=== PATIENT | female | born 1965 | race Caucasian/White ===

== ENCOUNTER 2020-07-04 15:29 | Inpatient (IN) ==
--- NOTE | 2020-07-04 15:41 | DR.SOBA ---
HPI Time Seen Time Seen by Provider: 07/04/20 15:39 HPI Comment HPI Comment: PATIENT WITH A HISTORY OF HYPERTENSION, ASTHMA AND TYPE 2 DIABETES COMPLAINS OF ACUTE ONSET OF SEVERE SHARP RIGHT SIDED PAIN BELOW AXILLA, ASSOCIATED WITH DYSPNEA, PAIN RADIATES TO BACK. HAS MARKED PAIN UPON INSPIRATION. DENIES COUGH, DIAPHORESIS AND PALPITATIONS. Complaints Chief Complaint Doctors Comments: SHARP RIGHT SIDED CHEST PAINS AND DYSPNEA COVID-19 Coronavirus risk:travel/contact w/high risk person: No Has patient experienced Coronavirus symptoms: No Reviewed Nurses Notes Reviewed: Yes Source History Provided: Patient Mode of Arrival Mode of Arrival: Ambulatory Context History of:: Asthma Modifying Factors Worsens:: Exertion and Other (INSPIRATION) If Chest Pain Quality: Sharp PMH PMH Past Surgical History: Yes ROS Review of Systems Constitutional: See HPI Eyes: No Symptoms Reported ENTM: No Symptoms Reported Respiratoy: See HPI and Short of Breath Cardiovascular: Chest Pain (SHARP RIGHT SIDED CHEST PAIN) Gastrointestinal/Abdominal: No Symptoms Reported Genitourinary: No Symptoms Reported Neurological: No Symptoms Reported Musculoskeletal: No Symptoms Reported Integumentary: No Symptoms Reported Hematologic/Lymphatic: No Symptoms Reported Endocrine: No Symptoms Reported Psychiatric: No Symptoms Reported All Other Systems: Reviewed and Negative PE Vital Signs Vitals: Temperature 98.4 F Pulse Rate 65 Respiratory Rate 18 Blood Pressure 98/53 O2 Sat by Pulse Oximetry 93 General Limitations: No Limitations General Appearance: Alert and In Distress (MODERATE) Head Head Exam: Normal Inspection and Atraumatic Eyes Eye exam: Normal Appearance and PERRL ENT ENT Exam: Normal Exam and Normal Oropharynx Neck Neck Exam: Normal Inspection and Full ROM Chest Chest Inspection: Tenderness (MARKED RIGHT SIDED CHEST WALL TENDERNESS, 4TH TO 8TH EXTENDS TO AXILLA) Respiratory Respiratory Exam: Normal Lung Sounds Bilat Respiratory Exam: Bilateral: Clear to Auscultation Cardiovascular Cardiovascular Exam: Regular Rate and Normal Rhythm Abdominal Exam Abdominal Exam: Normal Inspection Extremities Extremities Exam: Normal Inspection Back Back Exam: Normal Inspection Neurologic Neurological Exam: Alert and Oriented X3 Psychiatric Psychiatric Exam: Normal Affect and Normal Mood Skin Skin Exam: Warm, Dry, Intact and Normal Color MDM Differential Diagnosis Differential Diagnosis: Pneumonia and Pulmonary embolism Differential Diagnosis Comment:: PLEURISY COURSE Treatment Treatment: IV NORMAL SALINE 50ML/HR, TORADOL 30MG, ZOFRAN 4MG, MORPHINE 4MG IV, PLACED ON HEPARIN BOLUS 8700 UNITS IV AND HEPARIN INFUSION 1700 UNITS/HR Reevaluation 1st: Improved Consultation Call Returned: 18:20 Consultation Comments: DISCUSSED FINDINGS WITH DR BROWNE AT 1820 FOR OBSERVATION Education/Counseling Educated On: Treatment, Diagnosis and Needs for Follow Up ROR Labs Reviewed Result Diagrams: 07/04/20 14:44 07/04/20 14:44 Laboratory: WBC 8.3 X10^3/uL (3.6-10.0) 07/04/20 14:44 RBC 4.47 X10^6/uL (3.5-5.4) 07/04/20 14:44 Hgb 12.0 g/dL (12.0-16.0) 07/04/20 14:44 Hct 37.0 % (36.0-47.0) 07/04/20 14:44 MCV 82.9 fL (80.0-100.0) 07/04/20 14:44 MCH 26.9 pg (27.0-34.0) L 07/04/20 14:44 MCHC 32.4 g/dL (33.0-35.0) L 07/04/20 14:44 RDW 15.5 % (11.6-16.5) 07/04/20 14:44 Plt Count 226 X10^3/uL (150.0-450.0) 07/04/20 14:44 MPV 9.0 fL (7.4-11.0) 07/04/20 14:44 Neut % (Auto) 75.7 % (42.0-75.0) H 07/04/20 14:44 Lymph % (Auto) 14.0 % (21.0-51.0) L 07/04/20 14:44 Dewey % (Auto) 7.7 % (0.0-13.0) 07/04/20 14:44 Eos % (Auto) 2.1 % (0.9-2.9) 07/04/20 14:44 Baso % (Auto) 0.5 % (0.2-1.0) 07/04/20 14:44 Neut # (Auto) 6.3 x10^3/uL (2.2-4.8) H 07/04/20 14:44 Lymph # (Auto) 1.2 X10^3/uL (1.3-2.9) L 07/04/20 14:44 Dewey # (Auto) 0.6 x10^3/uL (0.3-0.8) 07/04/20 14:44 Eos # (Auto) 0.2 x10^3/uL (0.0-0.2) 07/04/20 14:44 Baso # (Auto) 0.0 X10^3/uL (0.0-0.1) 07/04/20 14:44 Absolute Nucleated RBC 0.0 /100WBC 07/04/20 14:44 PT 13.9 SECONDS (11.8-14.3) 07/04/20 14:44 INR Target Range - 07/04/20 14:44 INR 1.12 (0.8-1.3) 07/04/20 14:44 D-Dimer 0.71 ug/ml (0.0-0.57) H* 07/04/20 14:44 Sample Site Rra 07/04/20 15:50 ABG pH 7.380 (7.35-7.45) 07/04/20 15:50 ABG pCO2 56.0 mmHg (35.0-45.0) H* 07/04/20 15:50 ABG pO2 84.0 mmHg (80.0-100.0) 07/04/20 15:50 ABG HCO3 33.1 mmol/L (22-26) H* 07/04/20 15:50 ABG O2 Saturation 96.0 % (90-100) 07/04/20 15:50 ABG Base Excess 6.4 mmol/L (-2.0-2.0) H 07/04/20 15:50 Hamilton Test Pos 07/04/20 15:50 A-a Gradient 46.0 mmHg 07/04/20 15:50 FiO2 28.0 07/04/20 15:50 Blood Gas Comments Pt jey well eb 07/04/20 15:50 Sodium 142 mmol/L (136-145) 07/04/20 14:44 Corrected Sodium 148 mmol/L (136-145) H 07/04/20 14:44 Potassium 4.0 mmol/L (3.5-5.1) 07/04/20 14:44 Chloride 104 mmol/L (98-107) 07/04/20 14:44 Carbon Dioxide 32.4 mmol/L (21-32) H 07/04/20 14:44 BUN 25 mg/dL (7-18) H 07/04/20 14:44 Creatinine 1.70 mg/dL (0.55-1.02) H 07/04/20 14:44 Est GFR (MDRD) Af Amer 40 (>60) L 07/04/20 14:44 Est GFR (MDRD) Non-Af 33 (>60) L 07/04/20 14:44 Glucose 332 mg/dL (65-99) H 07/04/20 14:44 Calcium 8.8 mg/dL (8.5-10.1) 07/04/20 14:44 Corrected Calcium TNP 07/04/20 14:44 Total Bilirubin 0.30 mg/dL (0.2-1.0) 07/04/20 14:44 AST 15 Units/L (15-37) 07/04/20 14:44 ALT 19 Units/L (12-78) 07/04/20 14:44 Alkaline Phosphatase 99 Units/L (46-116) 07/04/20 14:44 Troponin I < 0.02 ng/mL (0-1.5) 07/04/20 14:44 Total Protein 7.4 g/dL (6.4-8.2) 07/04/20 14:44 Albumin 3.4 g/dL (3.4-5.0) 07/04/20 14:44 Globulin 4.0 g/dL (2.5-4.5) 07/04/20 14:44 Albumin/Globulin Ratio 0.9 Ratio (1.1-2.1) L 07/04/20 14:44 Other Results Comments: ELEVATED DDIMER, UNABLE TO OBTAIN CTA OF CHEST DUE TO LOW GFR XRAY XRAY Interpreted by: Radiologist (PORTABLE CHEST XRAY NEGATIVE FOR INFILTRATES, ATELECTASIS RIGHT LUNG WITH ELEVATION FO RIGHT DIAPHRAM) EKG Rate: 79 Rhythm: NSR ST: Nonsp (INFERIOR LATERAL) Opioid Opioid Risk Tool Total: 0 Total Score Risk Category: Low Risk Copyright: [facility] predicting aberrant behaviors Diagnosis Discharge Problem: Acute chest pain, Elevated d-dimer
[2020-07-04] MEDS ORDERED: ZOFRAN INJ 4 MG VIAL IVP ONE (15:42)
[2020-07-04] MEDS ORDERED: TORADOL 30 MG VIAL IVP STA (15:42)
[2020-07-04] MEDS ORDERED: NS 1000 ML 1,000 ML IV STA (15:42)
[2020-07-04] MEDS ORDERED: MORPHINE SULFATE INJ 4 MG IVP ONE (15:42)
[2020-07-04] MEDS ORDERED: ZOFRAN INJ 4 MG VIAL ONE (15:52)
[2020-07-04] MEDS ORDERED: TORADOL 30 MG VIAL ONE (15:52)
[2020-07-04] MEDS ORDERED: MORPHINE SULFATE INJ 4 MG ONE (15:52)
[2020-07-04] MEDS ORDERED: NS 1000 ML 1,000 ML ONE (15:53)
[2020-07-04] MEDS ORDERED: DUONEB 0.5 MG/3 MG (3 mL) NEB ONE (15:59)
[2020-07-04 16:04] LABS: BASOPHILS % (AUTO) 0.5 % (0.2-1.0); EOSINOPHILS # (AUTO) 0.2 x10^3/uL (0.0-0.2); EOSINOPHILS % (AUTO) 2.1 % (0.9-2.9); LYMPHOCYTES # (AUTO) 1.2 X10^3/uL (1.3-2.9); MEAN CORPUSCULAR HEMOGLOBIN 26.9 pg (27.0-34.0); MEAN CORPUSCULAR HGB CONC 32.4 g/dL (33.0-35.0); MEAN CORPUSCULAR VOLUME 82.9 fL (80.0-100.0); MONOCYTES # (AUTO) 0.6 x10^3/uL (0.3-0.8); MONOCYTES % (AUTO) 7.7 % (0.0-13.0); NEUTROPHILS # (AUTO) 6.3 x10^3/uL (2.2-4.8); NEUTROPHILS % (AUTO) 75.7 % (42.0-75.0); PLATELET COUNT 226 X10^3/uL (150.0-450.0); RED BLOOD COUNT 4.47 X10^6/uL (3.5-5.4); RED CELL DISTRIBUTION WIDTH 15.5 % (11.6-16.5); WHITE BLOOD COUNT 8.3 X10^3/uL (3.6-10.0)
[2020-07-04 16:18] LABS: ALANINE AMINOTRANSFERASE 19 Units/L (12-78); ALBUMIN 3.4 g/dL (3.4-5.0); ALKALINE PHOSPHATASE 99 Units/L (46-116); ASPARTATE AMINO TRANSFERASE 15 Units/L (15-37); BLOOD UREA NITROGEN 25 mg/dL (7-18); CALCIUM 8.8 mg/dL (8.5-10.1); CARBON DIOXIDE 32.4 mmol/L (21-32); CHLORIDE 104 mmol/L (98-107); COR NA(FOR HYPERGLY) 148 mmol/L (136-145); SODIUM 142 mmol/L (136-145); TOTAL PROTEIN 7.4 g/dL (6.4-8.2); TROPONIN I < 0.02 ng/mL (0-1.5); eGFR NON BLACK RACES 33 (>60)
[2020-07-04 16:24] LABS: ABG BASE EXCESS 6.4 mmol/L (-2.0-2.0)
[2020-07-04 16:25] LABS: ABG HCO3 33.1 mmol/L (22-26)
[2020-07-04 16:26] LABS: ABG ALLEN TEST POS
--- NOTE | 2020-07-04 16:42 | RAD ---
HISTORYPT. C/O SHORTNESS OF BREATH AND RIGHT SIDED LUNG PAIN. PT. STATES PAIN AND SHORTNESS OF BREATH BEGAN THIS MORNING. PT. WEARS O2 @ HOME PRN. LABORED RR NOTED AT TIME OF TRIAGE WELL TACHYPNEA.STUDYCHEST, [address], May 15, 2020 and chest radiograph, March 14, 2019TECHNIQUEChest radiographic imaging, AP portable projection, 1 imageFINDINGSNo cardiomegaly.Atelectasis at the right lung base adjacent to the elevated right diaphragm; as seen on the previous exam.No pleural effusion.No pneumothorax.No acute osseous abnormality.IMPRESSIONNo imaging findings of acute cardiopulmonary disease or significant interval changes.Electronically signed by: Axel Vargas (July 04, 2020 16:40:32)
[2020-07-04] MEDS ORDERED: HEPARIN SODIUM INJ 5000 UNITS IVP ONE (18:38)
[2020-07-04] MEDS ORDERED: HEPARIN SODIUM INJ 5000 UNITS ONE (18:39)
[2020-07-04] MEDS ORDERED: HEPARIN SODIUM IN D5W 25,000 UNITS/500 ML BAG IV ONE (18:40)
[2020-07-04] MEDS: HEPARIN SODIUM IN D5W 25,000 UNITS/500 ML BAG IV PRN (18:53)
[2020-07-04] MEDS ORDERED: NITROSTAT SL PRN (19:11)
[2020-07-04 19:23] LABS: BILIRUBIN,URINE NEGATIVE (NEGATIVE); BLOOD/HEMOGLOBIN,URINE NEGATIVE (NEGATIVE); GLUCOSE, URINE 3+ (NEGATIVE); KETONES,URINE NEGATIVE (NEGATIVE); LEUKOCYTE ESTERASE ,URINE NEGATIVE (NEGATIVE); NITRITES,URINE NEGATIVE (NEGATIVE); PROTEIN,URINE 2+ (NEGATIVE); UROBILINOGEN,URINE NORMAL (NORMAL)
[2020-07-04 19:39] LABS: APPEARANCE,URINE CLEAR (CLEAR); BACTERIA,URINE TRACE /HPF (NEGATIVE); COLOR,URINE YELLOW (YELLOW); HYALINE CASTS, URINE FEW /LPF (NEGATIVE); RBC,URINE 0-2 /HPF (0-3); SQUAMOUS EPITHELIAL CELL,UR FEW /HPF (NEGATIVE)
[2020-07-04 19:40] LABS: MUCUS,URINE FEW /HPF (NEGATIVE)
[2020-07-04 20:12] LABS: CKMB % 1.8 % (<4); CREATINE KINASE 67 Units/L (26-192); CREATINE KINASE MB 1.2 ng/mL (0-4.0); TROPONIN I < 0.02 ng/mL (0-1.5)
[2020-07-04] MEDS: DUONEB 0.5 MG/3 MG (3 mL) NEB SCH (21:04)
[2020-07-04] MEDS: SNACK - Diabetic Appropriate PO SCH (21:47)
[2020-07-04] MEDS: NEURONTIN CAP 300 MG PO SCH (21:55)
[2020-07-04] MEDS: TOUJEO SOLOSTAR PEN SC SCH (21:55)
[2020-07-04] MEDS: PEPCID TAB 40 MG PO SCH (21:55)
[2020-07-04] MEDS: AMARYL TAB 4 MG PO SCH (21:55)
[2020-07-04] MEDS: LASIX PO SCH (21:57)
[2020-07-04] MEDS: NORCO 5/325 MG TAB PO PRN (21:58)
[2020-07-04] MEDS ORDERED: VENTOLIN or PROAIR HFA IN SCH (22:00)
[2020-07-05] MEDS: DUONEB 0.5 MG/3 MG (3 mL) NEB SCH ×6 (01:05→21:25)
[2020-07-05 01:38] LABS: CKMB % 2.1 % (<4); CREATINE KINASE 53 Units/L (26-192); CREATINE KINASE MB 1.1 ng/mL (0-4.0); TROPONIN I < 0.02 ng/mL (0-1.5)
[2020-07-05] MEDS: NORCO 5/325 MG TAB PO PRN ×2 (06:05→13:20)
[2020-07-05 08:54] LABS: BASOPHILS % (AUTO) 0.6 % (0.2-1.0); EOSINOPHILS # (AUTO) 0.1 x10^3/uL (0.0-0.2); EOSINOPHILS % (AUTO) 2.5 % (0.9-2.9); HEMATOCRIT 32.6 % (36.0-47.0); HEMOGLOBIN 10.3 g/dL (12.0-16.0); LYMPHOCYTES # (AUTO) 1.3 X10^3/uL (1.3-2.9); LYMPHOCYTES % (AUTO) 21.7 % (21.0-51.0); MEAN CORPUSCULAR HEMOGLOBIN 26.7 pg (27.0-34.0); MEAN CORPUSCULAR HGB CONC 31.6 g/dL (33.0-35.0); MEAN CORPUSCULAR VOLUME 84.5 fL (80.0-100.0); MONOCYTES # (AUTO) 0.6 x10^3/uL (0.3-0.8); MONOCYTES % (AUTO) 9.6 % (0.0-13.0); NEUTROPHILS # (AUTO) 3.8 x10^3/uL (2.2-4.8); NEUTROPHILS % (AUTO) 65.6 % (42.0-75.0); PLATELET COUNT 152 X10^3/uL (150.0-450.0); RED BLOOD COUNT 3.85 X10^6/uL (3.5-5.4); RED CELL DISTRIBUTION WIDTH 15.4 % (11.6-16.5); WHITE BLOOD COUNT 5.8 X10^3/uL (3.6-10.0)
[2020-07-05] MEDS ORDERED: MULTI PO SCH (09:00)
[2020-07-05] MEDS ORDERED: [UNRECOGNIZED DRUG - OTHER] PO SCH (09:00)
[2020-07-05] MEDS ORDERED: SITAGLIPTIN METFORMIN PO SCH (09:00)
[2020-07-05 09:05] LABS: ALBUMIN 2.8 g/dL (3.4-5.0); CALCIUM 8.5 mg/dL (8.5-10.1); CARBON DIOXIDE 31.4 mmol/L (21-32); COR CA(FOR HYPOALB) 9.5 mg/dL (8.5-10.1); CREATININE 1.88 mg/dL (0.55-1.02); TOTAL PROTEIN 6.1 g/dL (6.4-8.2)
[2020-07-05] MEDS: CELEXA PO SCH (09:08)
[2020-07-05] MEDS: PRAVACHOL PO SCH (09:08)
[2020-07-05] MEDS: PEPCID TAB 40 MG PO SCH (09:10)
[2020-07-05] MEDS: NEURONTIN CAP 300 MG PO SCH ×2 (09:10→21:30)
[2020-07-05] MEDS: LOTENSIN TAB 10 MG PO SCH (09:10)
[2020-07-05] MEDS: LASIX PO SCH ×2 (09:11→21:30)
[2020-07-05] MEDS: MOBIC TAB 15 MG PO SCH (09:11)
[2020-07-05] MEDS: HumuLIN R SUBCUT SCH (09:15)
[2020-07-05 09:26] LABS: CKMB % 1.9 % (<4); CREATINE KINASE 52 Units/L (26-192); CREATINE KINASE MB < 1.0 ng/mL (0-4.0); TROPONIN I < 0.02 ng/mL (0-1.5)
[2020-07-05] MEDS: ULTRAM PO SCH (10:55)
[2020-07-05] MEDS: JANUVIA PO SCH (10:55)
[2020-07-05] MEDS: GLUCOPHAGE XR 24-HR PO SCH (10:55)
[2020-07-05] MEDS: NS 1000 ML 1,000 ML IV SCH (10:55)
[2020-07-05] MEDS: AMARYL TAB 4 MG PO SCH (10:56)
[2020-07-05 15:10] VITALS: BMI 60.9
[2020-07-05] MEDS: HEPARIN SODIUM IN D5W 25,000 UNITS/500 ML BAG IV PRN (15:45)
[2020-07-05] MEDS ORDERED: ZOFRAN INJ 4 MG VIAL ONE (20:03)
[2020-07-05] MEDS: ZOFRAN INJ 4 MG VIAL IVP PRN (20:10)
[2020-07-05] MEDS: SNACK - Diabetic Appropriate PO SCH (21:03)
[2020-07-05] MEDS: TOUJEO SOLOSTAR PEN SC SCH (21:30)
[2020-07-06] MEDS: NS 1000 ML 1,000 ML IV SCH ×3 (01:00→16:35)
[2020-07-06] MEDS: DUONEB 0.5 MG/3 MG (3 mL) NEB SCH ×6 (01:03→20:15)
[2020-07-06] MEDS: AMARYL TAB 4 MG PO SCH ×2 (03:24→09:40)
[2020-07-06 05:12] LABS: ALANINE AMINOTRANSFERASE 17 Units/L (12-78); ALBUMIN 2.8 g/dL (3.4-5.0); ALKALINE PHOSPHATASE 82 Units/L (46-116); ASPARTATE AMINO TRANSFERASE 11 Units/L (15-37); BASOPHILS % (AUTO) 0.5 % (0.2-1.0); BLOOD UREA NITROGEN 31 mg/dL (7-18); CALCIUM 8.2 mg/dL (8.5-10.1); CARBON DIOXIDE 29.8 mmol/L (21-32); CHLORIDE 107 mmol/L (98-107); COR CA(FOR HYPOALB) 9.2 mg/dL (8.5-10.1); CREATININE 1.75 mg/dL (0.55-1.02); EOSINOPHILS # (AUTO) 0.1 x10^3/uL (0.0-0.2); EOSINOPHILS % (AUTO) 1.5 % (0.9-2.9); HEMOGLOBIN 10.7 g/dL (12.0-16.0); LYMPHOCYTES # (AUTO) 1.6 X10^3/uL (1.3-2.9); LYMPHOCYTES % (AUTO) 20.1 % (21.0-51.0); MEAN CORPUSCULAR HEMOGLOBIN 26.9 pg (27.0-34.0); MEAN CORPUSCULAR HGB CONC 32.3 g/dL (33.0-35.0); MEAN CORPUSCULAR VOLUME 83.4 fL (80.0-100.0); MONOCYTES # (AUTO) 0.7 x10^3/uL (0.3-0.8); MONOCYTES % (AUTO) 8.9 % (0.0-13.0); NEUTROPHILS # (AUTO) 5.5 x10^3/uL (2.2-4.8); PLATELET COUNT 196 X10^3/uL (150.0-450.0); RED BLOOD COUNT 3.96 X10^6/uL (3.5-5.4); RED CELL DISTRIBUTION WIDTH 15.1 % (11.6-16.5); SODIUM 145 mmol/L (136-145); TOTAL PROTEIN 6.2 g/dL (6.4-8.2); WHITE BLOOD COUNT 7.9 X10^3/uL (3.6-10.0); eGFR NON BLACK RACES 32 (>60)
[2020-07-06] MEDS ORDERED: HEPARIN SODIUM INJ 5000 UNITS ONE (06:37)
[2020-07-06] MEDS: GLUCOPHAGE XR 24-HR PO SCH (09:41)
[2020-07-06] MEDS: CELEXA PO SCH (09:41)
[2020-07-06] MEDS: JANUVIA PO SCH (09:42)
[2020-07-06] MEDS: LASIX PO SCH ×2 (09:42→21:00)
[2020-07-06] MEDS: HumuLIN R SUBCUT SCH (09:42)
[2020-07-06] MEDS: LOTENSIN TAB 10 MG PO SCH (09:43)
[2020-07-06] MEDS: PEPCID TAB 20 MG PO SCH (09:43)
[2020-07-06] MEDS: MOBIC TAB 15 MG PO SCH (09:43)
[2020-07-06] MEDS: ULTRAM PO SCH (09:44)
[2020-07-06] MEDS: PRAVACHOL PO SCH (09:44)
[2020-07-06] MEDS: NEURONTIN CAP 300 MG PO SCH ×2 (09:45→21:00)
[2020-07-06] MEDS ORDERED: PHENERGAN INJ 25 MG IM PRN (09:54)
--- NOTE | 2020-07-06 10:22 | RAD ---
HISTORYSOBSTUDYCHEST x-ray, 1 VIEWCOMPARISONX-ray 07/04/2020FINDINGSElevated right hemidiaphragm is unchanged. Likely mild bibasilar atelectasis is similar to prior study. Heart is probably normal in size. No pneumothorax or pleural effusion is seen.IMPRESSIONAppearance of the chest is unchanged.Electronically signed by: Torres Abdi (July 06, 2020 10:20:02)
--- NOTE | 2020-07-06 11:39 | DR.H&P ---
H&P - History & Physical for Day of: H&P Date: 07/04/20 - Chief Complaint Chief Complaint: CHEST PAIN, SOB - History of Present Illness History of Present Illness: IS A 55 YEAR OLD PATIENT OF OURS WHO PRESENTED TO THE ER WITH COMPLAINTS OF RIGHT SIDED CHEST PAIN AND SHORTNESS OF BREATH THAT STARTED EARLIER IN THE DAY. SHE DESCRIBES PAIN SHARP, INTERMITTENT, AND IS CURRENTLY RATED A 5/10. PAIN REPORTEDLY RADIATES TO THE BACK AND IS WORSE ON INSPIRATION. SHE DENIES COUGH, DIAPHORESIS, AND PALPITATIONS. PMH INCLUDES HTN, ASTHMA, AND TYPE 2 DIABETES. ON EXAMINATION, SHE DOES HAVE MARKED RIGHT SIDED CHEST WALL TENDERNESS THAT EXTENDS TO THE AXILLA. ON ARRIVAL TO THE ER, VITALS WERE 98.4-84-48-94%-142/96. LABS WERE OBTAINED. ABNORMAL LAB VALUES INCLUDE THE FOLLOWING: D-DIMER 0.71, CARBON DIXOIDE 32.4, BUN 25, CREATININE 1.70, GLUCOSE 332. URINALYSIS OBTAINED AND IS UNREMARKABLE. COVID-19 NEGATIVE. A CHEST XRAY WAS OBTAINED AND REVEALED: No imaging findings of acute cardiopulmonary disease or significant interval changes. EKG REVEALED SINUS RHYTHM WITH HR 79. SHE WAS ADMITTED TO THE HOSPITAL FOR FURTHER EVALUATION AND TREATMENT OF ACUTE CHEST PAIN RULE OUT ACUTE NE, ELEVATED D-DIMER, RULE OUT PE. IN THE ER, SHE WAS GIVEN HEPARIN 5,000 UNITS IV X 1 DOSE. SHE WAS THEN STARTED ON A HEPARIN DRIP, NORMAL SALINE AT 75 ML/HR, DUONEBS Q4H, HUMULIN R SLIDING SCALE, NITROSTAT 0.4MG SL Q5M PRN, ZOFRAN 4MG IV Q6H PRN NAUSEA, AND HER HOME MEDICATIONS WERE RESUMED. WE WILL OBTAIN A VQ SCAN IN THE MORNING. OTHERWISE, WE WILL FOLLOW UP WITH AM LABS AND CONTINUE TO MORNING. - Past Medical History Past Medical History: Asthma, Diabetes, Dyslipidemia, Hypertension - Past Surgical History Surgical History: Bowel Resection, Cholecystectomy, Weight Loss Surgery - Family History Family Medical History: Diabetes Mellitus, Heart Failure - Social History Does patient currently use any type of tobacco product: No Have you used tobacco products in the last 12 months: No Type of Tobacco Use: None Does any household member use tobacco: No Alcohol Use: None - Medications Home Medications: Sulfa (Sulfonamide Antibiotics) [SULFA] Adverse Reaction (Verified 07/04/20 15:50) CONTINUE taking the following medications albuterol sulfate 2 inh INHALATION TID 07/04/20 [History] ascorbic acid (vitamin C) [Vitamin C] 500 mg PO DAILY 07/04/20 [History] benazepril 20 mg PO DAILY 07/04/20 [History] citalopram 40 mg PO DAILY 07/04/20 [History] famotidine 40 mg PO BID 07/04/20 [History] furosemide 20 mg PO BID 07/04/20 [History] gabapentin 600 mg PO BID 07/04/20 [History] glimepiride 4 mg PO HS 07/04/20 [History] glimepiride 8 mg PO QAM 07/04/20 [History] insulin glargine U-300 conc [Toujeo SoloStar U-300 Insulin] 10 unit SUBCUT HS 07/04/20 [History] insulin regular human [Novolin R Regular U-100 Insuln] 5 unit SUBCUT QAM 07/04/20 [History] meloxicam 7.5 mg PO DAILY 07/04/20 [History] pravastatin 20 mg PO DAILY 07/04/20 [History] sitagliptin-metformin [Janumet XR] 1 tab PO DAILY 07/04/20 [History] tramadol 50 mg PO DAILY 07/04/20 [History] - Review of Systems Constitutional: Weakness Eyes: No Symptoms Reported ENT: No Symptoms Reported Respiratory: See HPI, Shortness of Breath Cardiovascular: Chest Pain, See HPI Gastrointestinal: No Symptoms Reported Genitourinary: No Symptoms Reported Musculoskeletal: No Symptoms Reported Skin: No Symptoms Reported Neurological: Weakness - Physical Exam Vital Signs: Temperature 99.3 F Pulse Rate 73 Respiratory Rate 22 Blood Pressure 120/62 O2 Sat by Pulse Oximetry 96 Oriented: Normal Eyes: Normal Ear: Normal Nose: Normal Throat: Normal Respiratory: Diminished Throughout Cardiovascular: Normal : Normal Auscultation: Bowel Sounds: Normal Palpation: Normal Tenderness: Normal Skin: Normal Musculoskeletal: Normal Psychiatric: Normal Mood Description: Calm Affect: Normal Speech Pattern: Clear - Assessment/Plan (1) Chest pain, rule out acute myocardial infarction Status: Acute Plan: ADMIT, SUPPLEMENTAL OXYGEN, HEPARIN DRIP, NORMAL SALINE AT 75 ML/HR, DUONEBS Q4H, HUMULIN R SLIDING SCALE, NITROSTAT 0.4MG SL Q5M PRN, ZOFRAN 4MG IV Q6H PRN NAUSEA, AND HER HOME MEDICATIONS WERE RESUMED. (2) Elevated d-dimer Status: Acute Plan: VQ SCAN - Allergies Allergies/Adverse Reactions: Allergies Allergy/AdvReac Type Severity Reaction Status Date / Time Sulfa (Sulfonamide AdvReac Verified 07/04/20 15:50 Antibiotics) [SULFA]
[2020-07-06] MEDS: HEPARIN SODIUM IN D5W 25,000 UNITS/500 ML BAG IV PRN (13:52)
[2020-07-06] MEDS: NORCO 5/325 MG TAB PO PRN (13:53)
[2020-07-06] MEDS: ZOFRAN INJ 4 MG VIAL IVP PRN (13:55)
--- NOTE | 2020-07-06 14:40 | NM ---
HISTORYCHEST PAIN, ELEVATED D-DIMER 0.71, -COVIDSTUDYPERFUSION LUNG SCAN ONLYCOMPARISON[Chest radiograph from same day.]TECHNIQUE[Nuclear medicine perfusion scintigraphy. [5.2] mCi of technetium 99 M maa was administered.]FINDINGS[Apparent perfusion defects in the mid to lower right lung and lower left lung are likely due to patient body habitus and elevated hemidiaphragms as seen on recent chest radiograph.]IMPRESSION[Intermediate probability] for pulmonary emboli based on modified PIOPED criteria.Electronically signed by: Bipin Murray (July 06, 2020 14:38:09)
[2020-07-06] MEDS: TOUJEO SOLOSTAR PEN SC SCH (21:30)
[2020-07-06] MEDS ORDERED: D50W ABBOJECT SYR ONE (21:39)
[2020-07-07] MEDS: DUONEB 0.5 MG/3 MG (3 mL) NEB SCH ×6 (00:27→21:03)
[2020-07-07] MEDS ORDERED: LOPRESSOR INJ 5 MG AMP IVP ONE (01:21)
[2020-07-07] MEDS ORDERED: LOPRESSOR INJ 5 MG AMP ONE (01:30)
[2020-07-07] MEDS ORDERED: TOPROL XL PO SCH ×2 (01:45→09:00)
[2020-07-07] MEDS ORDERED: TOPROL XL PO ONE (01:59)
[2020-07-07] MEDS: SNACK - Diabetic Appropriate PO SCH (02:09)
[2020-07-07] MEDS: AMARYL TAB 4 MG PO SCH (02:10)
[2020-07-07] MEDS: NS 1000 ML 1,000 ML IV SCH ×3 (05:00→19:54)
[2020-07-07 08:11] LABS: BASOPHILS # (AUTO) 0.2 X10^3/uL (0.0-0.1); BASOPHILS % (AUTO) 2.7 % (0.2-1.0); EOSINOPHILS % (AUTO) 0.6 % (0.9-2.9); HEMATOCRIT 32.7 % (36.0-47.0); HEMOGLOBIN 10.4 g/dL (12.0-16.0); LYMPHOCYTES # (AUTO) 0.8 X10^3/uL (1.3-2.9); LYMPHOCYTES % (AUTO) 11.3 % (21.0-51.0); MEAN CORPUSCULAR HEMOGLOBIN 26.8 pg (27.0-34.0); MEAN CORPUSCULAR HGB CONC 31.9 g/dL (33.0-35.0); MEAN CORPUSCULAR VOLUME 83.9 fL (80.0-100.0); MEAN PLATELET VOLUME 8.5 fL (7.4-11.0); MONOCYTES # (AUTO) 0.5 x10^3/uL (0.3-0.8); MONOCYTES % (AUTO) 6.9 % (0.0-13.0); NEUTROPHILS # (AUTO) 5.4 x10^3/uL (2.2-4.8); NEUTROPHILS % (AUTO) 78.5 % (42.0-75.0); PLATELET COUNT 145 X10^3/uL (150.0-450.0); RED CELL DISTRIBUTION WIDTH 15.4 % (11.6-16.5); WHITE BLOOD COUNT 6.9 X10^3/uL (3.6-10.0)
[2020-07-07 08:23] LABS: ALBUMIN 2.6 g/dL (3.4-5.0); CALCIUM 8.3 mg/dL (8.5-10.1); CARBON DIOXIDE 29.5 mmol/L (21-32); COR CA(FOR HYPOALB) 9.4 mg/dL (8.5-10.1); CREATININE 1.37 mg/dL (0.55-1.02); TOTAL PROTEIN 6.2 g/dL (6.4-8.2)
--- NOTE | 2020-07-07 10:53 | CT ---
HISTORYBILATERAL HAND WEAKNESS; DECREASED MENTAL STATUSSTUDYBRAIN W/O CONCOMPARISONNoneTECHNIQUEMultiple axial images of the head were performed from the skull base to the vertex using standard departmental protocol. Sagittal and coronal reformatted images were performed. Dose reduction techniques including Automated Exposure Control (AEC) and adjustment of mA and kV were utilized.FINDINGSNo evidence of acute territorial infarct. No acute intracranial hemorrhage. No evidence of intracranial mass or midline shift. No hydrocephalus. No abnormal intra or extra-axial fluid collections. Chronic small vessel ischemic changes and global volume loss with mild commensurate ventricular dilatation.The calvaria is intact. The bilateral mastoid air cells and visualized paranasal sinuses are well pneumatized. The bilateral orbits are unremarkable.IMPRESSIONNo acute intracranial findings.Electronically signed by: MICHELLE SHRESTHA (July 07, 2020 10:51:43)
[2020-07-07] MEDS: LOTENSIN TAB 10 MG PO SCH (11:03)
[2020-07-07] MEDS: JANUVIA PO SCH (11:04)
[2020-07-07] MEDS: CELEXA PO SCH (11:13)
[2020-07-07] MEDS: NEURONTIN CAP 300 MG PO SCH ×2 (11:13→21:30)
[2020-07-07] MEDS: PEPCID TAB 20 MG PO SCH (11:14)
[2020-07-07] MEDS: LASIX PO SCH ×2 (11:14→21:30)
[2020-07-07] MEDS: ULTRAM PO SCH (11:14)
[2020-07-07] MEDS: PRAVACHOL PO SCH (11:15)
[2020-07-07] MEDS: MOBIC TAB 15 MG PO SCH (11:15)
[2020-07-07] MEDS: INVOKANA PO SCH (11:18)
[2020-07-07] MEDS: ACTOS PO SCH (11:18)
[2020-07-07] MEDS: GLUCOPHAGE XR 24-HR PO SCH ×2 (11:18→21:30)
[2020-07-07] MEDS: HEPARIN SODIUM IN D5W 25,000 UNITS/500 ML BAG IV PRN (13:30)
[2020-07-07] MEDS: TOPROL XL PO SCH (21:40)
[2020-07-08] MEDS: DUONEB 0.5 MG/3 MG (3 mL) NEB SCH ×6 (01:40→20:37)
[2020-07-08] MEDS: HEPARIN SODIUM IN D5W 25,000 UNITS/500 ML BAG IV PRN ×2 (02:20→21:57)
[2020-07-08] MEDS: NS 1000 ML 1,000 ML IV SCH ×3 (02:20→18:00)
[2020-07-08 02:26] LABS: BASOPHILS % (AUTO) 0.6 % (0.2-1.0); EOSINOPHILS # (AUTO) 0.2 x10^3/uL (0.0-0.2); EOSINOPHILS % (AUTO) 2.4 % (0.9-2.9); HEMATOCRIT 31.9 % (36.0-47.0); HEMOGLOBIN 10.3 g/dL (12.0-16.0); LYMPHOCYTES # (AUTO) 1.5 X10^3/uL (1.3-2.9); LYMPHOCYTES % (AUTO) 22.7 % (21.0-51.0); MEAN CORPUSCULAR HEMOGLOBIN 27.1 pg (27.0-34.0); MEAN CORPUSCULAR HGB CONC 32.2 g/dL (33.0-35.0); MEAN CORPUSCULAR VOLUME 84.2 fL (80.0-100.0); MEAN PLATELET VOLUME 8.7 fL (7.4-11.0); MONOCYTES # (AUTO) 0.7 x10^3/uL (0.3-0.8); MONOCYTES % (AUTO) 10.3 % (0.0-13.0); NEUTROPHILS # (AUTO) 4.2 x10^3/uL (2.2-4.8); PLATELET COUNT 137 X10^3/uL (150.0-450.0); RED BLOOD COUNT 3.79 X10^6/uL (3.5-5.4); RED CELL DISTRIBUTION WIDTH 15.5 % (11.6-16.5); WHITE BLOOD COUNT 6.6 X10^3/uL (3.6-10.0)
[2020-07-08 02:33] LABS: ALBUMIN 2.6 g/dL (3.4-5.0); CALCIUM 8.2 mg/dL (8.5-10.1); CARBON DIOXIDE 30.6 mmol/L (21-32); COR CA(FOR HYPOALB) 9.3 mg/dL (8.5-10.1); CREATININE 1.35 mg/dL (0.55-1.02); TOTAL PROTEIN 6.1 g/dL (6.4-8.2)
[2020-07-08] MEDS ORDERED: TOPROL XL PO ONE (08:45)
[2020-07-08] MEDS: LOTENSIN TAB 10 MG PO SCH (08:58)
[2020-07-08] MEDS: TOPROL XL PO SCH (08:59)
[2020-07-08] MEDS: ULTRAM PO SCH (09:00)
[2020-07-08] MEDS: ACTOS PO SCH (09:00)
[2020-07-08] MEDS: NEURONTIN CAP 300 MG PO SCH ×2 (09:01→21:52)
[2020-07-08] MEDS: PRAVACHOL PO SCH (09:01)
[2020-07-08] MEDS: JANUVIA PO SCH (09:01)
[2020-07-08] MEDS: PEPCID TAB 20 MG PO SCH (09:02)
[2020-07-08] MEDS: MOBIC TAB 15 MG PO SCH (09:02)
[2020-07-08] MEDS: GLUCOPHAGE XR 24-HR PO SCH ×2 (09:03→21:52)
[2020-07-08] MEDS: LASIX PO SCH ×2 (09:03→21:52)
[2020-07-08] MEDS: INVOKANA PO SCH (09:04)
[2020-07-08] MEDS: CELEXA PO SCH (09:04)
[2020-07-08] MEDS: NORCO 5/325 MG TAB PO PRN (10:39)
[2020-07-08] MEDS ORDERED: COLACE CAP 100 MG PO SCH (21:00)
[2020-07-08] MEDS: MILK OF MAGNESIA PO SCH (21:52)
[2020-07-09] MEDS: DUONEB 0.5 MG/3 MG (3 mL) NEB SCH ×4 (01:27→12:03)
[2020-07-09 01:52] LABS: BASOPHILS % (AUTO) 0.5 % (0.2-1.0); EOSINOPHILS # (AUTO) 0.1 x10^3/uL (0.0-0.2); EOSINOPHILS % (AUTO) 1.6 % (0.9-2.9); HEMATOCRIT 33.8 % (36.0-47.0); LYMPHOCYTES # (AUTO) 0.7 X10^3/uL (1.3-2.9); LYMPHOCYTES % (AUTO) 8.8 % (21.0-51.0); MEAN CORPUSCULAR HGB CONC 32.5 g/dL (33.0-35.0); MONOCYTES # (AUTO) 0.8 x10^3/uL (0.3-0.8); NEUTROPHILS # (AUTO) 6.5 x10^3/uL (2.2-4.8); NEUTROPHILS % (AUTO) 79.1 % (42.0-75.0); PLATELET COUNT 156 X10^3/uL (150.0-450.0); RED BLOOD COUNT 4.08 X10^6/uL (3.5-5.4); RED CELL DISTRIBUTION WIDTH 15.2 % (11.6-16.5); WHITE BLOOD COUNT 8.3 X10^3/uL (3.6-10.0)
[2020-07-09 02:00] LABS: ALBUMIN 2.8 g/dL (3.4-5.0); CALCIUM 8.6 mg/dL (8.5-10.1); CARBON DIOXIDE 31.5 mmol/L (21-32); COR CA(FOR HYPOALB) 9.6 mg/dL (8.5-10.1); CREATININE 1.28 mg/dL (0.55-1.02); TOTAL PROTEIN 6.6 g/dL (6.4-8.2)
[2020-07-09] MEDS: NS 1000 ML 1,000 ML IV SCH (04:29)
[2020-07-09] MEDS ORDERED: TOPROL XL PO ONE (08:14)
[2020-07-09] MEDS: GLUCOPHAGE XR 24-HR PO SCH (08:48)
[2020-07-09] MEDS: NEURONTIN CAP 300 MG PO SCH (08:48)
[2020-07-09] MEDS: ACTOS PO SCH (08:48)
[2020-07-09] MEDS: INVOKANA PO SCH (08:48)
[2020-07-09] MEDS: CELEXA PO SCH (08:49)
[2020-07-09] MEDS: TOPROL XL PO SCH (08:50)
[2020-07-09] MEDS: MOBIC TAB 15 MG PO SCH (08:51)
[2020-07-09] MEDS: PRAVACHOL PO SCH (08:52)
[2020-07-09] MEDS: LASIX PO SCH (08:53)
[2020-07-09] MEDS: JANUVIA PO SCH (08:53)
[2020-07-09] MEDS: PEPCID TAB 20 MG PO SCH (08:55)
[2020-07-09] MEDS: ULTRAM PO SCH (08:55)
[2020-07-09] MEDS: LOTENSIN TAB 10 MG PO SCH (09:00)
[2020-07-09] MEDS: MILK OF MAGNESIA PO SCH (09:01)
[2020-07-09] MEDS ORDERED: ELIQUIS PO ONE (11:37)
[2020-07-09 12:42] VITALS: BP 163/74
== END 2020-07-09 12:40 | disposition home or self-care (01) | DRG 176 ==
LOC: ICU 15:29 → ER 15:29 → ICU 19:58
PROVIDERS: ADMIT Family Medicine; ATTEND Internal Medicine
DX: R07.89 Other chest pain; R06.02 Shortness of breath; Z20.822 Contact with and (suspected) exposure to COVID-19; E11.65 Type 2 diabetes mellitus with hyperglycemia; I10 Essential (primary) hypertension; I26.99 Other pulmonary embolism without acute cor pulmonale; R26.89 Other abnormalities of gait and mobility

== ENCOUNTER 2020-08-07 19:28 | Observation (INO) ==
[2020-08-07] MEDS ORDERED: ASPIRIN 81 MG CHEWTAB PO ONE (19:47)
[2020-08-07] MEDS ORDERED: ASPIRIN 81 MG CHEWTAB ONE (19:48)
[2020-08-07] MEDS ORDERED: ZOFRAN INJ 4 MG VIAL IVP ONE (19:52)
[2020-08-07] MEDS ORDERED: MORPHINE SULFATE INJ 2 MG INJ IVP ONE (19:52)
[2020-08-07 20:08] LABS: BASOPHILS # (AUTO) 0.1 X10^3/uL (0.0-0.1); BASOPHILS % (AUTO) 1.1 % (0.2-1.0); EOSINOPHILS # (AUTO) 0.1 x10^3/uL (0.0-0.2); EOSINOPHILS % (AUTO) 2.3 % (0.9-2.9); HEMATOCRIT 33.8 % (36.0-47.0); HEMOGLOBIN 10.8 g/dL (12.0-16.0); LYMPHOCYTES # (AUTO) 1.5 X10^3/uL (1.3-2.9); LYMPHOCYTES % (AUTO) 27.4 % (21.0-51.0); MEAN CORPUSCULAR HEMOGLOBIN 26.9 pg (27.0-34.0); MEAN CORPUSCULAR HGB CONC 32.1 g/dL (33.0-35.0); MEAN CORPUSCULAR VOLUME 83.8 fL (80.0-100.0); MEAN PLATELET VOLUME 8.9 fL (7.4-11.0); MONOCYTES # (AUTO) 0.5 x10^3/uL (0.3-0.8); MONOCYTES % (AUTO) 10.1 % (0.0-13.0); NEUTROPHILS # (AUTO) 3.2 x10^3/uL (2.2-4.8); NEUTROPHILS % (AUTO) 59.1 % (42.0-75.0); PLATELET COUNT 177 X10^3/uL (150.0-450.0); RED BLOOD COUNT 4.03 X10^6/uL (3.5-5.4); RED CELL DISTRIBUTION WIDTH 15.8 % (11.6-16.5); WHITE BLOOD COUNT 5.3 X10^3/uL (3.6-10.0)
[2020-08-07] MEDS ORDERED: ZOFRAN INJ 4 MG VIAL ONE (20:14)
[2020-08-07] MEDS ORDERED: MORPHINE SULFATE INJ 2 MG INJ ONE (20:14)
--- NOTE | 2020-08-07 20:22 | DR.CP ---
HPI Time Seen Time Seen by Provider: 08/07/20 19:38 PCP Primary Care Physician: Franco HPI Comment HPI Comment: Patient presents with the complaint of chest pain x 1-2 days. Notes that she is due to have a stress test tomorrow, but the pain worsened and so she came in for evaluation. History of DVT/PE, and is currently taking Eliquis. Denies any radiation of the pain. No sob, N/V or diaphoresis. PMHx of DM, HTN, hypercholesterolemia. PMH PMH Past Medical History: Asthma, Diabetes, Dyslipidemia and Hypertension Past Surgical History: Yes Surgical History: Bowel Resection, Cholecystectomy and Weight Loss Surgery Family History Family Medical History: Diabetes Mellitus and Heart Failure Social History Do you use any recreational Drugs:: No ROS Review of Systems Constitutional: See HPI Cardiovascular: Chest Pain All Other Systems: Reviewed and Negative PE Vitals Vitals: Temperature 98.1 F Pulse Rate 63 Respiratory Rate 20 Blood Pressure 115/58 O2 Sat by Pulse Oximetry 97 General Limitations: No Limitations General Appearance: Alert and In No Apparent Distress Head Head Exam: Normal Inspection, Atraumatic and Normocephalic Eyes Eye exam: Normal Appearance and EOMI ENT ENT Exam: Normal Exam Chest Chest Inspection: Normal Inspection and Symmetric Chest Wall Rise Respiratory Respiratory Exam: Normal Lung Sounds Bilat Respiratory Exam: Bilateral: Clear to Auscultation Cardiovascular Cardiovascular Exam: Regular Rate, Normal Rhythm and Normal Heart Sounds Abdominal Exam Abdominal Exam: Normal Inspection, Normal Bowel Sounds and Soft COURSE Consultation Called: 21:02 Consultation Comments: Called Dr. Puentes. Awaiting callback. ROR Labs Reviewed Laboratory Results Reviewed?: Yes Result Diagrams: 08/07/20 19:58 08/07/20 19:58 Laboratory: WBC 5.3 X10^3/uL (3.6-10.0) 08/07/20 19:58 RBC 4.03 X10^6/uL (3.5-5.4) 08/07/20 19:58 Hgb 10.8 g/dL (12.0-16.0) L 08/07/20 19:58 Hct 33.8 % (36.0-47.0) L 08/07/20 19:58 MCV 83.8 fL (80.0-100.0) 08/07/20 19:58 MCH 26.9 pg (27.0-34.0) L 08/07/20 19:58 MCHC 32.1 g/dL (33.0-35.0) L 08/07/20 19:58 RDW 15.8 % (11.6-16.5) 08/07/20 19:58 Plt Count 177 X10^3/uL (150.0-450.0) 08/07/20 19:58 MPV 8.9 fL (7.4-11.0) 08/07/20 19:58 Neut % (Auto) 59.1 % (42.0-75.0) 08/07/20 19:58 Lymph % (Auto) 27.4 % (21.0-51.0) 08/07/20 19:58 Roberts % (Auto) 10.1 % (0.0-13.0) 08/07/20 19:58 Eos % (Auto) 2.3 % (0.9-2.9) 08/07/20 19:58 Baso % (Auto) 1.1 % (0.2-1.0) H 08/07/20 19:58 Neut # (Auto) 3.2 x10^3/uL (2.2-4.8) 08/07/20 19:58 Lymph # (Auto) 1.5 X10^3/uL (1.3-2.9) 08/07/20 19:58 Roberts # (Auto) 0.5 x10^3/uL (0.3-0.8) 08/07/20 19:58 Eos # (Auto) 0.1 x10^3/uL (0.0-0.2) 08/07/20 19:58 Baso # (Auto) 0.1 X10^3/uL (0.0-0.1) 08/07/20 19:58 Absolute Nucleated RBC 0.1 /100WBC 08/07/20 19:58 PT 18.4 SECONDS (11.8-14.3) 08/07/20 19:58 INR Target Range - 08/07/20 19:58 INR 1.61 (0.8-1.3) H 08/07/20 19:58 APTT 31.6 SECONDS (22.9-36.5) 08/07/20 19:58 PTT Comment - 08/07/20 19:58 Sodium 145 mmol/L (136-145) 08/07/20 19:58 Corrected Sodium 149 mmol/L (136-145) H 08/07/20 19:58 Potassium 5.5 mmol/L (3.5-5.1) H 08/07/20 19:58 Chloride 110 mmol/L (98-107) H 08/07/20 19:58 Carbon Dioxide 28.8 mmol/L (21-32) 08/07/20 19:58 BUN 24 mg/dL (7-18) H 08/07/20 19:58 Creatinine 1.95 mg/dL (0.55-1.02) H 08/07/20 19:58 Est GFR (MDRD) Af Amer 34 (>60) L 08/07/20 19:58 Est GFR (MDRD) Non-Af 28 (>60) L 08/07/20 19:58 Glucose 256 mg/dL (65-99) H 08/07/20 19:58 Calcium 8.3 mg/dL (8.5-10.1) L 08/07/20 19:58 Corrected Calcium 9.6 mg/dL (8.5-10.1) 08/07/20 19:58 Total Bilirubin 0.20 mg/dL (0.2-1.0) 08/07/20 19:58 AST 11 Units/L (15-37) L 08/07/20 19:58 ALT 14 Units/L (12-78) 08/07/20 19:58 Alkaline Phosphatase 84 Units/L (46-116) 08/07/20 19:58 Creatine Kinase 52 Units/L (26-192) 08/07/20 19:58 CK-MB (CK-2) < 1.0 ng/mL (0-4.0) 08/07/20 19:58 CK/CKMB % Calc 1.9 % (<4) 08/07/20 19:58 Troponin I < 0.02 ng/mL (0-1.5) 08/07/20 19:58 Total Protein 5.9 g/dL (6.4-8.2) L 08/07/20 19:58 Albumin 2.4 g/dL (3.4-5.0) L 08/07/20 19:58 Globulin 3.5 g/dL (2.5-4.5) 08/07/20 19:58 Albumin/Globulin Ratio 0.7 Ratio (1.1-2.1) L 08/07/20 19:58 XRAY X-ray Results: HISTORY CHEST PAIN STUDY CHEST, 1 VIEW COMPARISON July 07, 2019 FINDINGS SUPPORT DEVICES: None. LUNGS/PLEURA: Reduced lung volumes. Platelike density in the right lower lung zone. No pleural effusion or space occupying pneumothorax. HEART AND MEDIASTINUM: The cardiac and mediastinum contours appear normal. BONES AND SOFT TISSUES: No acute abnormality. Persistent elevation of the right diaphragm. IMPRESSION 1. Right basilar atelectasis. Electronically signed by: Asif Syed (Aug 07, 2020 20:45:00) Opioid Opioid Risk Tool Age (Lm box if 16-45): No History of Preadolescent Sexual Abuse: No Total: 0 Total Score Risk Category: Low Risk Copyright: [facility] predicting aberrant behaviors Diagnosis Discharge Problem: Acute chest pain
[2020-08-07 20:29] LABS: ALANINE AMINOTRANSFERASE 14 Units/L (12-78); ALBUMIN 2.4 g/dL (3.4-5.0); ALKALINE PHOSPHATASE 84 Units/L (46-116); ASPARTATE AMINO TRANSFERASE 11 Units/L (15-37); BLOOD UREA NITROGEN 24 mg/dL (7-18); CALCIUM 8.3 mg/dL (8.5-10.1); CARBON DIOXIDE 28.8 mmol/L (21-32); CHLORIDE 110 mmol/L (98-107); CKMB % 1.9 % (<4); COR CA(FOR HYPOALB) 9.6 mg/dL (8.5-10.1); COR NA(FOR HYPERGLY) 149 mmol/L (136-145); CREATINE KINASE 52 Units/L (26-192); CREATINE KINASE MB < 1.0 ng/mL (0-4.0); CREATININE 1.95 mg/dL (0.55-1.02); SODIUM 145 mmol/L (136-145); TOTAL PROTEIN 5.9 g/dL (6.4-8.2); TROPONIN I < 0.02 ng/mL (0-1.5); eGFR NON BLACK RACES 28 (>60)
--- NOTE | 2020-08-07 20:47 | RAD ---
HISTORYCHEST PAINSTUDYCHEST, 1 VIEWCOMPARISONMay 2019FINDINGSSUPPORT DEVICES: None.LUNGS/PLEURA: Reduced lung volumes. Platelike density in the right lower lung zone. No pleural effusion or space occupying pneumothorax.HEART AND MEDIASTINUM: The cardiac and mediastinum contours appear normal.BONES AND SOFT TISSUES: No acute abnormality. Persistent elevation of the right diaphragm.IMPRESSION1. Right basilar atelectasis.Electronically signed by: Asif Syed (Aug 07, 2020 20:45:00)
[2020-08-07] MEDS ORDERED: MORPHINE SULFATE INJ 2 MG INJ IVP PRN (21:14)
[2020-08-07 21:55] LABS: CKMB % 1.8 % (<4); CREATINE KINASE 55 Units/L (26-192); CREATINE KINASE MB < 1.0 ng/mL (0-4.0); TROPONIN I < 0.02 ng/mL (0-1.5)
[2020-08-08] MEDS: NS 1000 ML 1,000 ML IV SCH ×2 (00:45→11:11)
[2020-08-08] MEDS ORDERED: VENTOLIN or PROAIR HFA IN SCH (01:05)
[2020-08-08 01:49] VITALS: BMI 59.7
[2020-08-08 03:35] LABS: BASOPHILS % (AUTO) 0.9 % (0.2-1.0); EOSINOPHILS # (AUTO) 0.1 x10^3/uL (0.0-0.2); EOSINOPHILS % (AUTO) 2.7 % (0.9-2.9); HEMATOCRIT 32.7 % (36.0-47.0); HEMOGLOBIN 10.4 g/dL (12.0-16.0); LYMPHOCYTES # (AUTO) 1.9 X10^3/uL (1.3-2.9); LYMPHOCYTES % (AUTO) 35.3 % (21.0-51.0); MEAN CORPUSCULAR HEMOGLOBIN 26.8 pg (27.0-34.0); MEAN CORPUSCULAR HGB CONC 31.8 g/dL (33.0-35.0); MEAN CORPUSCULAR VOLUME 84.3 fL (80.0-100.0); MONOCYTES # (AUTO) 0.5 x10^3/uL (0.3-0.8); NEUTROPHILS # (AUTO) 2.7 x10^3/uL (2.2-4.8); NEUTROPHILS % (AUTO) 52.1 % (42.0-75.0); PLATELET COUNT 167 X10^3/uL (150.0-450.0); RED BLOOD COUNT 3.88 X10^6/uL (3.5-5.4); RED CELL DISTRIBUTION WIDTH 16.4 % (11.6-16.5); WHITE BLOOD COUNT 5.3 X10^3/uL (3.6-10.0)
[2020-08-08 03:52] LABS: ALANINE AMINOTRANSFERASE 12 Units/L (12-78); ALBUMIN 2.3 g/dL (3.4-5.0); ALKALINE PHOSPHATASE 74 Units/L (46-116); ASPARTATE AMINO TRANSFERASE 15 Units/L (15-37); BLOOD UREA NITROGEN 25 mg/dL (7-18); CHLORIDE 112 mmol/L (98-107); CHOL/HDL RATIO 3.7 (0.0-5.0); CHOLESTEROL 178 mg/dL (0-200); CKMB % 2.3 % (<4); COR CA(FOR HYPOALB) 9.4 mg/dL (8.5-10.1); COR NA(FOR HYPERGLY) 149 mmol/L (136-145); CREATINE KINASE 44 Units/L (26-192); CREATINE KINASE MB < 1.0 ng/mL (0-4.0); CREATININE 2.13 mg/dL (0.55-1.02); HDL CHOLESTEROL 48 mg/dL (40-60); SODIUM 147 mmol/L (136-145); TOTAL PROTEIN 5.4 g/dL (6.4-8.2); TRIGLYCERIDES 154 mg/dL (0-150); TROPONIN I < 0.02 ng/mL (0-1.5); eGFR NON BLACK RACES 26 (>60)
[2020-08-08] MEDS ORDERED: PROVENTIL NEB TX 0.083% 2.5MG/ 3ML ONE (04:38)
[2020-08-08] MEDS: PROVENTIL NEB TX 0.083% 2.5MG/ 3ML NEB SCH ×2 (05:30→13:04)
[2020-08-08] MEDS ORDERED: PROVENTIL NEB TX 0.083% 2.5MG/ 3ML NEB SCH (06:00)
[2020-08-08] MEDS ORDERED: [UNRECOGNIZED DRUG - OTHER] PO SCH (09:00)
[2020-08-08] MEDS ORDERED: SITAGLIPTIN METFORMIN PO SCH (09:00)
[2020-08-08] MEDS ORDERED: HumuLIN R SUBCUT SCH (09:00)
[2020-08-08] MEDS ORDERED: MULTI PO SCH (09:00)
[2020-08-08] MEDS: ASPIRIN PO SCH ×2 (09:38→12:34)
[2020-08-08] MEDS: CELEXA PO SCH ×2 (09:38→12:34)
[2020-08-08] MEDS: ELIQUIS PO SCH ×2 (09:38→12:34)
[2020-08-08] MEDS: LOTENSIN TAB 10 MG PO SCH ×2 (09:39→12:35)
[2020-08-08] MEDS: LASIX PO SCH ×2 (09:39→12:34)
[2020-08-08] MEDS: PRAVACHOL PO SCH ×2 (09:39→12:36)
[2020-08-08] MEDS: NEURONTIN CAP 300 MG PO SCH ×2 (09:39→12:35)
[2020-08-08] MEDS: PROTONIX INJ 40 MG VIAL IVP SCH ×2 (09:40→12:36)
[2020-08-08] MEDS: PROTONIX TAB 40 MG PO SCH ×2 (09:40→12:37)
[2020-08-08] MEDS: TOPROL XL PO SCH ×2 (09:40→12:37)
[2020-08-08] MEDS: ULTRAM PO SCH ×2 (09:41→12:37)
[2020-08-08] MEDS: VITAMIN C PO SCH ×2 (09:41→12:40)
[2020-08-08 09:47] LABS: CKMB % 2.2 % (<4); CREATINE KINASE 46 Units/L (26-192); CREATINE KINASE MB < 1.0 ng/mL (0-4.0); TROPONIN I < 0.02 ng/mL (0-1.5)
[2020-08-08] MEDS ORDERED: ZOFRAN INJ 4 MG VIAL IVP PRN (11:32)
[2020-08-08 11:44] VITALS: BP 147/65
[2020-08-08] MEDS ORDERED: TOPROL XL PO ONE (11:53)
[2020-08-08] MEDS ORDERED: SNACK - Diabetic Appropriate PO SCH (20:00)
[2020-08-08] MEDS ORDERED: AMARYL TAB 4 MG PO SCH (21:00)
[2020-08-08] MEDS ORDERED: TOUJEO SOLOSTAR PEN SC SCH (21:00)
[2020-08-08] MEDS ORDERED: LEXISCAN IV ONE (21:12)
--- NOTE | 2020-09-06 20:01 | DR.CARTERS ---
Short Stay Summary - Admission Date Date of Admission: 08/07/20 - Discharge Date Discharge Date: 08/08/20 - Admission Diagnoses (1) Chest pain, rule out acute myocardial infarction Status: Acute - Hospital Course Hospital Course: IS A 55 YEAR OLD PATIENT OF OURS. SHE PRESENTED TO THE ER WITH COMPLAINTS OF CHEST PAIN FOR 1-2 DAYS PRIOR TO ARRIVAL. PAIN DESCRIBED SHARP, INTERMITTENT, AND RATED A 4/10. SHE REPORTS BEING SCHEDULED FOR A STRESS TEST ON 08/08/20, BUT WHEN PAIN WORSENED, SHE DECIDED TO COME IN FOR EVALUATION. SHE DENIED SOB, N/V, OR DIAPHORESIS. SHE HAS A PMH OF DVT/PE, ASTHMA, DM II, DYSLIPIDEMIA, HTN, BOWEL RESECTION, CHOLECYSTECTOMY, AND WEIGHT LOSS SURGERY. ON ARRIVAL TO THE ER, VITALS WERE 98.1-66-22-97%-115/58. LABS WERE OBTAINED. ABNORMAL LAB VALUES INCLUDED THE FOLLOWING: HGB 10.8, HCT 33.8, INR 1.61, POTASSIUM 5.5, CHLORIDE 110, BUN 24, CREATININE 1.95, GLUCOSE 256, CALCIUM 8.3, AST 11, TOTAL PROTEIN 5.9, ALBUMIN 2.4. CARDIAC ENZYMES WERE WITHIN NORMAL LIMITS. COVID-19 NEGATIVE. EKG WAS OBTAINED AND REVEALED SINUS RHYTHM WITH HR 64. CHEST XRAY WAS OBTAINED AND REVEALED: 1. Right basilar atelectasis. IN THE ER, SHE WAS GIVEN ASPIRIN 324MG PO X 1, MORPHINE 2MG IV X 1, ZOFRAN 4MG IV X 1. SHE WAS ADMITTED TO THE HOSPITAL FOR FURTHER EVALUATION AND TREATMENT OF CHEST PAIN RULE OUT ACUTE NV. SHE WAS STARTED ON NORMAL SALINE AT 75 ML/HR, ECOTRIN 325MG PO DAILY, CELEXA 40MG PO DAILY, ELIQUIS 5MG PO BID, LASIX 20MG PO BID, LOTENSIN 20MG PO DAILY, PRAVACHOL 20MG PO DAILY, PROTONIX 40MG IV BID, TOPROL XL 100MG PO DAILY, ULTRAM 50G PO DAILY, VITAMIN C 500MG PO DAILY, ZYPREXA 2.5MG PO DAILY, ZOFRAN 4MG IV Q6H PRN. , [employer]PER[employer] WAS NOTIFIED AND PLANS TO PROCEED WITH STRESS TEST. WE WILL OBTAIN SERIAL CARDIAC ENZYMES AND EKGS. OTHERWISE, WE PLANNED TO FOLLOW UP WITH AM LABS AND CONTINUE TO MONITOR. ON MORNING ROUNDS, PATIENT WAS ALERT AND ORIENTED, LYING IN BED ON MORNING ROUNDS. SHE DENIED CHEST PAIN UPON ROUNDS. ON EXAMINATION, HEART REGULAR IN RATE AND RHYTHM. BILATERAL LUNGS CLEAR TO AUSCULTATION. ABDOMEN OBESE, SOFT, NON- TENDER. NORMAL BOWEL SOUNDS NOTED IN ALL QUADRANTS. HER VITALS THIS MORNING WERE 97.7-54-18-100%-115/74. LABS WERE OBTAINED. ABNORMAL LAB VALUES INCLUDE THE FOLLOWING: HGB 10.4, HCT 32.7, INR 1.55, SODIUM 147, POTASSIUM 5.3, CHLORIDE 112, BUN 25, CREATININE 2.13, GLUCOSE 203, CALCIUM 8.0, TOTAL PROTEIN 5.4, ALBUMIN 2.3, TRIGLYCERIDES 154. CARDIAC ENZYMES WERE WITHIN NORMAL LIMITS. NO CHANGES NOTED TO EKGs. STRESS TEST WAS PERFORMED BY . AFTER STRESS TEST, WE PLANNED FOR DISCHARGE. INSTRUCTIONS FOR MEDICATIONS AND FOLLOW UP WERE DISCUSSED WITH PATIENT AND FAMILY. THEY VERBALIZED UNDERSTANDING OF ALL ORDERS. SHE WAS INSTRUCTED TO CONTINUE HER CURRENT MEDICATIONS AND TO FOLLOW UP IN THE OFFICE ON 08/21/20. SHE WILL ALSO FOLLOW UP WITH , [employer] SUPERVISOR. PATIENT DISCHARGED HOME WITH FAMILY IN STABLE CONDITION. TIME SPENT ON CLINICAL ASSESSMENT, REVIEWING LABS AND IMAGING, DECISION MAKING, PREPARING DISCHARGE PAPERS, DISCHARGE INSTRUCTIONS, AND DOCUMENTATION GREATER THAN 75 MINUTES. - Discharge Medications Discharge Medications: Home Medication List olanzapine 2.5 mg PO DAILY 08/07/20 [History] Prescriptions: - Discharge Plan Disposition: HOME HEALTH SERVICE Condition: Stable - Follow up/Referrals Follow up/Referrals: Hari Gamez [Primary Care Provider] - 08/21/20 2:10 pm - Instructions Instructions: Shortness of Breath, Adult, [id number], Nonspecific Chest Pain, [id number], Form - Daily Diabetes Record, Type 1 Diabetes Mellitus, Diagnosis, Adult, [id number], Form - Blood Pressure Record Sheet, Pharmacologic Stress Echocardiogram, Nuclear Medicine Exam, Managing Your Hypertension Forms: Excuse From Work or School, Precautions for COVID19, Patient Portal, Social Distancing
== END 2020-08-08 13:30 | disposition home health service (06) ==
LOC: ER 19:29 → ICU 19:29
PROVIDERS: ADMIT Internal Medicine; ATTEND Internal Medicine
DX: E87.5 Hyperkalemia; I10 Essential (primary) hypertension; R94.4 Abnormal results of kidney function studies; R07.89 Other chest pain; R79.1 Abnormal coagulation profile; R73.09 Other abnormal glucose; Z20.822 Contact with and (suspected) exposure to COVID-19; E78.2 Mixed hyperlipidemia; J98.11 Atelectasis